=== PATIENT | male | born 1965 | race Caucasian/White ===

== ENCOUNTER 2017-01-02 16:26 | Emergency (ER) | payer BC ==
[~2017-01-02] VITALS: Ht 182.9 cm; Wt 111.9 kg
[~2017-01-02 16:26] MED LIST: MULTTAB58 PO; PRN10125 PO; RED600TA PO
[2017-01-02 16:29] VITALS: TEMP 36.8; Ht 182.9 cm; Wt 111.9 kg
[2017-01-02] MEDS ORDERED: DiphenhydrAMINE HCL 50 MG/ML VIAL IV STA (16:38)
[2017-01-02] MEDS ORDERED: METHYLPREDNISOLONE 125 MG VIAL IV STA (16:38)
[2017-01-02] MEDS ORDERED: RANITIDINE HCL 50 MG/100 ML D5W IV STA (16:38)
[2017-01-02] MEDS ORDERED: CHOL1000 PO (16:43)
[2017-01-02] MEDS ORDERED: LSN/10125 PO (16:43)
[2017-01-02] MEDS ORDERED: MAGN500C PO (16:43)
[2017-01-02] MEDS ORDERED: PRED20TA PO (18:12)
--- NOTE | 2017-01-02 18:13 | EMERGENCY ROOM VISIT NOTE ---
History Report prepared by Zulayibsarbjit: Nora Miranda Under the Supervision of: Dr. Feliciano Chirinos D.O. First contact with patient: 16:34 Chief Complaint: ALLERGIC REACTION Stated Complaint: BEE STING, SWELLING PAIN ON FACE History of Present Illness The patient is a 51 year old male who presents to the Emergency Room with complaints of a constant allergic reaction beginning 1 hour ago. 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 He reports that each time he is stung it gets progressively worse but he has not ever been stung on the lip. He notes that he had a headache shortly after the sting that has resolved. The patient denies any difficulty breathing. He states that when he was stung last, it was in the arm and it swelled and worsened over 24 hours. The patient notes that he was able to get the stinger out of his lip. Source of History: patient Onset: 1 hour ago Position: lip Quality: other (swelling) Timing: constant Associated Symptoms: + headache, No SOB Review of Systems See HPI for pertinent positives & negatives. A total of 10 systems reviewed and were otherwise negative. Past Medical & Surgical Medical Problems: (1) Laceration of left thumb Family History No pertinent family history stated. Social History Smoking Status: Never Smoker Alcohol Use: none Drug Use: none Marital Status: Housing Status: lives with family Occupation Status: employed Current/Historical Medications Scheduled Cholecalciferol (Vitamin D3), 1,000 INTER.UNIT PO DAILY Hctz/Lisinopril (Lisinopril/Hctz 10/12.5 Mg), 1 TAB PO DAILY Magnesium Oxide (Mg Supplement (Magnesium), 500 MG PO DAILY Multiple Vitamin (Multivitamin), 1 TAB PO DAILY Prednisone (Prednisone), 2 TAB PO DAILY Allergies Coded Allergies: Bee Venom (Verified Allergy, Intermediate, Swelling, 01/02/17) Physical Exam Vital Signs Date Time Temp Pulse Resp B/P (MAP) Pulse Ox O2 Delivery O2 Flow Rate FiO2 01/02/17 16:56 77 01/02/17 16:36 96 Room Air 01/02/17 16:29 36.8 95 18 162/97 96 Room Air Physical Exam CONSTITUTIONAL/VITAL SIGNS: Reviewed / noted above. GENERAL: Non-toxic in appearance. INTEGUMENTARY: Warm, dry, and [place]. HEAD: Lower lip edema, slightly greater on the left than the right. No mucosal edema. EYES: without scleral icterus or trauma. ENT/OROPHARYNX: clear and moist. LYMPHADENOPATHY/NECK: Is supple without lymphadenopathy or meningismus. RESPIRATORY: Lungs clear and equal. CARDIOVASCULAR: Regular rate and rhythm. GI/ABDOMEN: Soft and nontender. No organomegaly or pulsatile mass. No rebound or guarding. Normal bowel sounds. EXTREMITIES: Warm and well perfused. BACK: No CVA tenderness. NEUROLOGICAL: Intact without focal deficits. PSYCHIATRIC: normal affect. MUSCULOSKELETAL: Normally developed with good muscle tone. Medical Decision & Procedures Medications Administered Medications (Trade) Dose Ordered Sig/Miriam Route Start Time Stop Time Status Last Admin Dose Admin Ranitidine HCl (zANTac IV) 50 mg NOW STAT IV 01/02/17 16:38 01/02/17 16:39 DC 01/02/17 16:57 50 MG Methylprednisolone Sodium Succinate (Solu-Medrol IV) 125 mg NOW STAT IV 01/02/17 16:38 01/02/17 16:39 DC 01/02/17 16:57 125 MG Diphenhydramine HCl (Benadryl Inj) 25 mg NOW STAT IV 01/02/17 16:38 01/02/17 16:39 DC 01/02/17 16:57 25 MG ED Course 1634: Previous medical records were reviewed. The patient was evaluated in room B7. A complete history and physical examination was performed. 1638: Benadryl Inj 25mg IV, Solu-Medrol IV 125mg IV, Zantac IV 50mg IV. 1814: On reevaluation, the patient is doing well. I discussed the results and findings with the patient. He verbalized agreement of the treatment plan. The patient was discharged home. Medical Decision Differential diagnosis: Etiologies such as allergic reaction, anaphylaxis, urticaria, Hurley-Nish syndrome, toxic epidermal necrolysis, erythema multiforme, cellulitis, as well as others were entertained. This is a 51-year-old male who presents to the ED with a chief complaint of a allergic reaction. The patient reports that he is raising honeybees. The patient was stung in the left lower lip about an hour prior to his arrival here. His lip was moderately swollen and he came in for evaluation. He states that he has been stung in the arm previously and he had to moderate swelling in his arm at that time. The patient denies any airway issues. He denies any shortness of breath. Denies any swelling to the tongue or posterior pharynx. Denies any difficulty swallowing. Has no hives or other symptoms suggestive of a systemic reaction. The patient's exam reveals lower lip swelling primarily with the left being slightly larger than the right. There is no evidence of airway issues. There is no mucosal edema or tongue swelling. His oropharynx is clear and patent. The patient has no stridor or respiratory difficulties. He was treated with IV Benadryl, Solu-Medrol as well as Zantac. The patient did not have any significant change in his symptoms. He is felt safe for discharge. He was discharged on prednisone and will continue Benadryl as needed. Medication Reconcilliation Current Medication List: was personally reviewed by me Blood Pressure Screening Patient's blood pressure: Elevated blood pressure Blood pressure disposition: Referred to PCP Impression Primary Impression: Local reaction to bee sting Scribe Attestation The scribe's documentation has been prepared under my direction and personally reviewed by me in its entirety. I confirm that the note above accurately reflects all work, treatment, procedures, and medical decision making performed by me. Departure Information Dispostion Home / Self-Care Prescriptions Prednisone (Prednisone) 20 Mg Tab 2 TAB PO DAILY for 4 Days, #8 TAB Prov: Feliciano Chirinos D.O. 01/02/17 Referrals ProAlberto M.D. (PCP) Forms HOME CARE DOCUMENTATION FORM, IMPORTANT VISIT INFORMATION Patient Instructions Bites Stings Insect, My [facility] [employer] Additional Instructions Prednisone as prescribed. Take Benadryl as needed every 6 hours. Return for significant worsening, increased swelling, difficulty swallowing or breathing or other symptoms.
[2017-01-02 18:25] VITALS: BP 146/89; PULSE 86; O2SAT 98
== END 2017-01-02 18:45 | disposition home or self-care (01) ==
LOC: C.EDB 16:27
DX: T63.441A Toxic effect of venom of bees, accidental (unintentional), initial encounter (principal); Z79.899 Other long term (current) drug therapy

== ENCOUNTER → 2017-07-26 | Outpatient (CLI) | payer BC ==
[~2017-07-26] MED LIST changes: +CHOL1000 PO; +LSN/10125 PO; +MAGN500C PO; +OPTIRAY 320 IV PRN; -PRN10125 PO; -RED600TA PO
--- NOTE | 2017-07-26 18:32 | DIAGNOSTIC IMAGING REPORT ---
CT OF THE ABDOMEN AND PELVIS WITH CONTRAST CLINICAL HISTORY: Left lower quadrant abdominal pain. COMPARISON STUDY: ET tube the abdomen and pelvis March 03, 2007 and right upper quadrant July 06, 2012. TECHNIQUE: Following IV administration of 94 mL of Optiray-320, axial images of the abdomen and pelvis were obtained from the lung bases to the proximal femurs. Images were reviewed in the axial, sagittal, and coronal planes. IV contrast was administered without complication. A dose lowering technique was utilized adhering to the principles of ALARA. Oral contrast was administered. CT DOSE: 759.54 mGy.cm FINDINGS: Lung bases are clear. Probable fatty infiltration of the liver. The spleen, adrenal glands and kidneys are normal. There is no evidence for a bowel obstruction. There is moderate wall thickening of the sigmoid colon with an inflamed diverticulum. There is moderate pericolonic infiltration. No free air or abscess is present. The appendix is normal. There is no lymphadenopathy. Fat-containing bilateral inguinal hernias are noted, right larger than left. There are no suspicious osseous lesions. IMPRESSION: Acute sigmoid diverticulitis. Moderate pericolonic infiltration and colonic wall thickening. No free air or abscess. Electronically signed by: Gustavo Rodriguez M.D. 07/26/2017 6:30 PM Dictated Date/Time: 07/26/2017 6:21 PM
== END | disposition home or self-care (01) ==
LOC: C.CTS 15:53
PROVIDERS: ATTEND Internal Medicine
DX: K57.32 Diverticulitis of large intestine without perforation or abscess without bleeding (principal); D72.829 Elevated white blood cell count, unspecified; R50.9 Fever, unspecified; R10.32 Left lower quadrant pain; R10.824 Left lower quadrant rebound abdominal tenderness

== ENCOUNTER → 2017-07-26 | Outpatient (CLI) | payer BC ==
[~2017-07-26] MED LIST changes: -OPTIRAY 320 IV PRN
[2017-07-26 14:39] LABS: BASO % 0.1 %; BASO ABS # 0.01 K/uL (0-0.2); EOS % 0.3 %; EOS ABS # 0.04 K/uL (0-0.5); HEMATOCRIT 40.8 % (42-52); HEMOGLOBIN 13.9 g/dL (14.0-18.0); IG# 0.02 K/uL (0.00-0.02); LYMPH % 15.4 %; MEAN CELL VOLUME 85.5 fL (80-100); MEAN CORPUSCULAR HEMOGLOBIN 29.1 pg (25-34); MEAN CORPUSCULAR HGB CONC 34.1 g/dl (32-36); MEAN PLATELET VOLUME 10.4 fL (7.4-10.4); MONO % 8.9 %; MONO ABS # 1.21 K/uL (0.11-0.59); NEUT % 75.2 %; NEUT ABS # 10.25 K/uL (1.4-6.5); PLATELET COUNT 255 K/uL (130-400); RED CELL DISTRIBUTION WIDTH CV 13.4 % (11.5-14.5); RED CELL DISTRIBUTION WIDTH SD 41.8 fL (36.4-46.3); WHITE BLOOD COUNT 13.63 K/uL (4.8-10.8)
[2017-07-26 15:20] LABS: BLOOD UREA NITROGEN 8 mg/dl (7-18); CREATININE 0.92 mg/dl (0.60-1.40); GLUCOSE 84 mg/dl (70-99); POTASSIUM 3.8 mmol/L (3.5-5.1); SODIUM 136 mmol/L (136-145)
[2017-07-26 15:21] LABS: ALBUMIN 3.9 gm/dl (3.4-5.0); ALT/SGPT 26 U/L (12-78); CALCIUM 9.1 mg/dl (8.5-10.1); CARBON DIOXIDE 25 mmol/L (21-32)
[2017-07-26 15:23] LABS: ALKALINE PHOSPHATASE 43 U/L (45-117); AST/SGOT 20 U/L (15-37); TOTAL PROTEIN 7.6 gm/dl (6.4-8.2)
== END | disposition home or self-care (01) ==
LOC: C.LAB1850 12:59
PROVIDERS: ATTEND Internal Medicine
DX: R50.9 Fever, unspecified (principal); R10.32 Left lower quadrant pain; R10.824 Left lower quadrant rebound abdominal tenderness